=== PATIENT | female | born 1950 | race Caucasian/White ===

== ENCOUNTER 2019-01-21 00:27 | Day surgery (SDC) | payer MEDICARE, OTHER ==
[~2019-01-21] VITALS: Ht 157.5 cm; Wt 71.7 kg
[2019-01-21] VITALS (9 sets, daily range): BP systolic 106–155; BP diastolic 60–88
[~2019-01-21 00:27] MED LIST: ESCI20TA38 PO; ESOM20CA31 PO; IBUP-1687 PO
[2019-01-21] MEDS ORDERED: MIDAZOLAM 2 MG/2 ML VIAL IVP PRN (06:00)
[2019-01-21] MEDS ORDERED: ceFAZolin(*) 1 GM VIAL 1 GM in NS(*) 0.9% 100 ML MINI-BAG 100 ML IVPB ONE (06:00)
[2019-01-21] MEDS ORDERED: NORMOSOL R SOLN(*) 1000 ML BAG 1,000 ML IV PRN (06:00)
[2019-01-21] MEDS ORDERED: LIDOCAINE/SOD BICARB 8.4% SYR ID ONE (06:00)
[2019-01-21] MEDS ORDERED: ROPIVACAINE 0.2% 20 ML VIAL ONE (06:23)
[2019-01-21] MEDS ORDERED: ONDANSETRON 4 MG/2 ML VIAL ONE (06:27)
[2019-01-21] MEDS ORDERED: DEXAMETHASONE SOD 4 MG/ML VIAL ONE (06:27)
[2019-01-21] MEDS ORDERED: PROPOFOL EMUL(*) 10MG/ML 20 ML 20 ML ONE (06:27)
[2019-01-21] MEDS ORDERED: LIDOCAINE MPF 1% 5 ML VIAL ONE (06:27)
[2019-01-21] MEDS ORDERED: fentaNYL CITR 100 MCG/2 ML AMP ONE (06:28)
[2019-01-21] MEDS ORDERED: KETAMINE HCL-NS 50 MG/5 ML SYR ONE (06:30)
[2019-01-21] MEDS ORDERED: ePHEDrine 25 MG/5 ML DISP.SYR IVP ONE (07:04)
[2019-01-21] MEDS ORDERED: HYDROmorphone HCL 2 MG/ML SDV ONE (07:55)
[2019-01-21] MEDS ORDERED: HYDR-653 PO (08:58)
--- NOTE | 2019-01-21 09:29 | OPERATIVE REPORT 1 ---
EVENT DATE: January 21, 2019 SURGEON: Moo Culp MD ANESTHESIOLOGIST: Maximino Musa MD ANESTHESIA: General, LMA. 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 POSTOPERATIVE DIAGNOSIS Left thumb osteoarthritis. PROCEDURE PERFORMED Left thumb basal joint arthroplasty and a De Quervain first dorsal compartment release with suspension in the FCR. FINDINGS The patient had a significant arthritic joint associated with the basal joint arthroplasty and some irritation around the first dorsal compartment. ESTIMATED BLOOD LOSS Minimal. DRAINS None. COMPLICATIONS None. IMPLANTS USED [employer] TruShot anchors x2. SPECIMENS None. TOURNIQUET TIME About 90 minutes. INDICATIONS AND HISTORY This patient is a 68-year-old female that presented to my clinic for evaluation of bilateral hand pain and irritation associated with her thumbs. The left one was worse than the right and so she wanted to go head with the left basal joint arthroplasty after failed conservative management associated with it. We talked to her about the suspension plasty and may not give her complete relief associated with it and she may have problems with nerve or artery issues associated with it and the other risks and benefits were discussed with the patient. Informed consent was obtained at the last clinic visit. DESCRIPTION OF PROCEDURE As the patient was brought into the operating room, she and the procedure were both verified. She was placed supine on the operative table, and induced and intubated by Anesthesia. The left upper extremity was then prepped and draped in the usual fashion. A timeout was observed verifying the correct patient and procedure. The standard incision was made in a curvilinear fashion over the base of the thumb, right over the base of the metacarpal and then to the trapezium. I was then able to go down to the extensor tendon for the finger in the first dorsal compartment. Once I was able to get to the first dorsal compartment, I was then able to release that under direct visualization and release the first dorsal compartment and De Quervain irritation. There was some tenosynovitis around this area, but no other signs of major problems. I then was able to spread those tendons to the side and then go through the capsule down to the trapezium itself. I was then able to dissect mostly around the trapezium and then broke it in half. We were then able to remove the majority of the radial sided portion of the trapezium without any major difficulty, although there was some bony adhesions to the bottom of the area right around the FCR, so after careful dissection we were able to remove this. We also then removed the ulnar portion without too much difficulty leaving a nice void without any major bone fragments in the area. I then removed the cartilage off the metacarpal base, in order to suspend in the flexor carpi radialis. I then turned attention to the flexor carpi radialis where I dissected at the wrist area to find the FCR. I then went more proximal and made another small incision in that area to find the myotendinous junction associated with the FCR. I then went underneath the myotendinous junction and then cut the tendon without any difficulty. I pulled it back through to the wrist and then back into the area vacated by the trapezium with the anchor in the base. I then put in 2 TruShot anchors made by [employer] into the base of the metacarpal and then tied those into the flexor carpi radialis. I then put a 4-0 Prolene up and down the flexor carpi radialis in order to accordion it in and make the anchovy. I then accordioned it in and then tied it over itself and then tied this into the capsule. I then closed the capsule with the other 2 sections of the Orthocord from the TruShot in order to close the capsule completely. I had irrigated with copious amounts of saline prior to this and then also irrigated after that. I then closed the skin with a 3-0 Vicryl in an interrupted subcuticular fashion and then running subcuticular 4-0 Prolene was then applied. We anesthetized it with ropivacaine and then dressed it with Steri-Strips, gauze 4 x 4s and a soft dressing and then the patient was put in a splint and then tourniquet was let down just after 90 minutes and the patient was awakened and extubated and transferred to the PACU in stable condition. MICKI
[2019-01-21] MEDS ORDERED: APAP/HYDROCODONE 325/5 TAB PO ONE (10:45)
--- NOTE | 2019-01-21 11:05 | NUR ---
pt became dizzy while attempting to stand, pt assisted back to laying position.
--- NOTE | 2019-01-21 12:31 | NUR ---
patient oxygen dropping to 82-84% on room air, patient oxygen improves to 94% with coughing, deep breathing and aerobica, however oxygen saturation falls again when at rest, cardio pulmonary service called for duo neb as ordered by Dr. Musa, will monitor for effect.
[2019-01-21] MEDS ORDERED: ALBUTEROL/IPRATROPIUM 3 ML NEB ONE (12:33)
--- NOTE | 2019-01-21 13:56 | NUR ---
Dr. Musa notified of hypoxia on room air, orders received to send patient home on oxygen. Oxygen initiated through [facility].
--- NOTE | 2019-01-21 13:57 | NUR ---
Dr. Culp notified of need for oxygen, ok with discharge home with oxygen
--- NOTE | 2019-01-21 14:42 | NUR ---
Terese here at this time to deliver oxygen
--- NOTE | 2019-01-21 15:00 | NUR ---
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
--- NOTE | 2019-01-21 15:15 | NUR ---
Family present for discharge instructions, they report filling prescription. discharge education completed, questions answered, pt discharged with all belongings and home portable oxygen with contact information for [facility].
== END 2019-01-21 10:12 | disposition home or self-care (01) ==
LOC: OR 00:27
PROVIDERS: ATTEND Orthopaedic Surgery
DX: M19.042 Primary osteoarthritis, left hand (principal); I25.10 Atherosclerotic heart disease of native coronary artery without angina pectoris; K21.9 Gastro-esophageal reflux disease without esophagitis
CPT/HCPCS: 25000; 26535; 76000; 94640; 94667; A9270; J0690; J1100; J1170; J2001; J2250; J2405; J2704; J2795; J3010; J3490; J7620; C1713